=== PATIENT | female | born 1970 | race Caucasian/White ===

== ENCOUNTER → 2017-12-11 | Outpatient (REF) | payer OTHER | LOC: M LAB REF 17:28 | DX: R30.0 Dysuria (principal) ==

== ENCOUNTER → 2018-01-02 | Outpatient (REF) | payer OTHER | LOC: M LAB REF 17:27 | DX: R30.0 Dysuria (principal) | CPT/HCPCS: 87186 ==

== ENCOUNTER → 2018-01-06 | Outpatient (REF) | payer OTHER ==
[2018-01-06 18:02] LABS: BACTERIA, URINE AUTO 1+ (NEGATIVE); MUCUS, URINE SMALL (NEGATIVE); RBC, URINE AUTO 0 /HPF (0-3); SQUAMOUS EPITHELIAL CELL UR AU 0 /HPF (0-6); WBC, URINE AUTO 33 /HPF (0-3)
== END ==
LOC: M SMT 17:07
DX: R30.0 Dysuria (principal)

== ENCOUNTER → 2018-01-10 | Outpatient (CLI) | payer OTHER ==
[~2018-01-10] MED LIST: ISOVUE-370 76% 100ML VIAL (Q9967) As Ordered
== END ==
LOC: M RAD 08:08
DX: R30.0 Dysuria (principal)
CPT/HCPCS: Q9967

== ENCOUNTER → 2018-01-20 | Outpatient (REF) | payer OTHER | LOC: M SMT 11:56 | DX: N39.0 Urinary tract infection, site not specified (principal) ==

== ENCOUNTER → 2018-02-07 | Outpatient (REF) | payer OTHER ==
[2018-02-07 14:06] LABS: BACTERIA, URINE AUTO 1+ (NEGATIVE); MUCUS, URINE SMALL (NEGATIVE); RBC, URINE AUTO 3 /HPF (0-3); SQUAMOUS EPITHELIAL CELL UR AU 1 /HPF (0-6); WBC, URINE AUTO TNTC /HPF (0-3); YEAST LIKE CELL URINE AUTO SMALL
== END ==
LOC: M SMT 13:17
DX: R30.0 Dysuria (principal)

== ENCOUNTER → 2018-02-19 | Outpatient (REF) | payer OTHER ==
[2018-02-19 13:38] LABS: APPEARANCE, URINE CLEAR (CLEAR); BACTERIA, URINE AUTO 1+ (NEGATIVE); BILIRUBIN, URINE AUTO NEGATIVE (NEGATIVE); BLOOD, URINE BLOOD NEGATIVE (NEGATIVE); COLOR, URINE YELLOW (YELLOW); GLUCOSE, URINE (UA) AUTO NEGATIVE (NEGATIVE); KETONE, URINE AUTO NEGATIVE (NEGATIVE); LEUKOCYTE ESTERASE, URINE AUTO 1+ (NEGATIVE); NITRITE, URINE AUTO NEGATIVE (NEGATIVE); PROTEIN, URINE AUTO NEGATIVE (NEGATIVE); RBC, URINE AUTO 1 /HPF (0-3); SPECIFIC GRAVITY URINE AUTO 1.006 (1.002-1.035); SQUAMOUS EPITHELIAL CELL UR AU 0 /HPF (0-6); UROBILINOGEN, URINE AUTO 0.2 mg/dL (0.0-2.0); WBC, URINE AUTO 19 /HPF (0-3)
== END ==
LOC: M SMT 13:06
DX: N39.0 Urinary tract infection, site not specified (principal)
CPT/HCPCS: 81001

== ENCOUNTER → 2018-03-07 | Outpatient (REF) | payer OTHER ==
[2018-03-07 14:14] LABS: AMORPHOUS SEDIMENT SMALL (NEGATIVE); BACTERIA, URINE AUTO NEGATIVE (NEGATIVE); RBC, URINE AUTO 5 /HPF (0-3); SQUAMOUS EPITHELIAL CELL UR AU 0 /HPF (0-6); WBC, URINE AUTO 181 /HPF (0-3)
== END ==
LOC: M SMT 12:55
PROVIDERS: ATTEND Specialist
DX: R30.0 Dysuria (principal)

== ENCOUNTER → 2018-03-16 | Outpatient (REF) | payer OTHER | LOC: M WUC 09:10 | PROVIDERS: ATTEND Physician Assistant | DX: N39.0 Urinary tract infection, site not specified (principal) ==

== ENCOUNTER → 2018-04-10 | Outpatient (REF) | payer OTHER ==
[2018-04-10 18:52] LABS: BACTERIA, URINE AUTO 1+ (NEGATIVE); CALCIUM OXALATE CRYSTALS MODERATE; MUCUS, URINE SMALL (NEGATIVE); RBC, URINE AUTO 4 /HPF (0-3); SQUAMOUS EPITHELIAL CELL UR AU 5 /HPF (0-6); WBC, URINE AUTO TNTC /HPF (0-3)
== END ==
LOC: M SMT 17:36
PROVIDERS: ATTEND Specialist
DX: K50.914 Crohn's disease, unspecified, with abscess (principal)

== ENCOUNTER → 2018-06-18 | Outpatient (REF) | payer OTHER ==
[2018-06-18 18:02] LABS: BACTERIA, URINE AUTO 1+ (NEGATIVE); MUCUS, URINE SMALL (NEGATIVE); RBC, URINE AUTO 2 /HPF (0-3); SQUAMOUS EPITHELIAL CELL UR AU 0 /HPF (0-6); WBC, URINE AUTO 99 /HPF (0-3)
== END ==
LOC: M SMT 17:01
PROVIDERS: ATTEND Specialist
DX: R30.0 Dysuria (principal)

== ENCOUNTER 2020-08-05 21:16 | Emergency (ER) | payer OTHER ==
[~2020-08-05] VITALS: Ht 160 cm; Wt 77.9 kg
[2020-08-05] MEDS ORDERED: PROG1CAP9 PO (21:31)
[2020-08-05] MEDS ORDERED: CEPH500T PO ×2 (21:31)
[2020-08-05] MEDS ORDERED: PENT500C PO (21:31)
[2020-08-05] MEDS ORDERED: HUMI40IN2 INJ (21:31)
[2020-08-05] MEDS ORDERED: PANT20TA6 PO (21:31)
[2020-08-05] MEDS ORDERED: ONDA-83 PO (21:31)
[2020-08-05] MEDS ORDERED: TELM1TAB35 PO (21:31)
[2020-08-05] MEDS ORDERED: HYDR-3490 PO (21:31)
[2020-08-05] MEDS ORDERED: ACETAMINOPHEN 325 MG TAB PO ONE (22:35)
[2020-08-05 22:46] LABS: BASO % 0.2 % (0.0-1.0); EOS % 0.1 % (0.0-3.0); HEMATOCRIT 37.7 % (36.0-47.0); HEMOGLOBIN 12.9 g/dl (12.0-15.5); LYMPH # 0.2 10^3/uL (1.5-5.0); LYMPH % 1.2 % (24.0-44.0); MEAN CORPUSCULAR HEMOGLOBIN 31.8 pg (27.0-33.0); MEAN CORPUSCULAR HGB CONC 34.2 g/dl (32.0-36.5); MEAN CORPUSCULAR VOLUME 92.9 fl (80.0-96.0); MONO # 0.8 10^3/uL (0.0-0.8); MONO % 4.4 % (2.0-8.0); NEUTROPHILS # 16.1 10^3/uL (1.5-8.5); NEUTROPHILS % 93.3 % (36.0-66.0); PLATELET COUNT, AUTOMATED 342 10^3/uL (150-450); RED BLOOD COUNT 4.06 10^6/uL (4.00-5.40); WHITE BLOOD COUNT 17.2 10^3/uL (4.0-10.0)
[2020-08-05 23:10] LABS: BLOOD UREA NITROGEN 15 MG/DL (7-18); CARBON DIOXIDE LEVEL 28 MEQ/L (21-32); CHLORIDE LEVEL 102 MEQ/L (98-107); CREATININE FOR GFR 0.85 MG/DL (0.55-1.30); GLOMERULAR FILTRATION RATE > 60.0 (>58); GLUCOSE, FASTING 183 MG/DL (70-100); POTASSIUM SERUM 3.5 MEQ/L (3.5-5.1); SODIUM LEVEL 138 MEQ/L (136-145)
[2020-08-05 23:15] LABS: ALBUMIN 3.2 GM/DL (3.2-5.2); ALT/SGPT 38 U/L (12-78); BILIRUBIN,DIRECT 0.2 MG/DL (0.0-0.2); BILIRUBIN,TOTAL 0.5 MG/DL (0.2-1.0); HCG, SERUM QUANTITATIVE < 1.0 MIU/ML; TOTAL PROTEIN 7.6 GM/DL (6.4-8.2)
[2020-08-05] MEDS ORDERED: NS 1,000 ML IV ONE (23:20)
[2020-08-05] MEDS ORDERED: NS 2,340 ML in IV 1 EA IV ONE (23:20)
[2020-08-05] MEDS ORDERED: cefTRIAXone SOD 2 GM in D5W MINI-BAG PLUS 50 ML IV ONE (23:20)
[2020-08-06] MEDS ORDERED: ACETAMINOPHEN 325 MG TAB PO ONE (00:15)
--- NOTE | 2020-08-06 04:28 | REPVR ---
PROCEDURE INFORMATION: Exam: CT Abdomen And Pelvis Without Contrast Exam date and time: 08/06/2020 3:12 AM Age: 49 years old Clinical indication: Abdominal pain; Generalized; Additional info: Hematuria? Stone TECHNIQUE: Imaging protocol: Computed tomography of the abdomen and pelvis without contrast. Radiation optimization: All CT scans at this facility use at least one of these dose optimization techniques: automated exposure control; mA and/or kV adjustment per patient size (includes targeted exams where dose is matched to clinical indication); or iterative reconstruction. COMPARISON: CT ABD PELVIS W/O FOL BY WIT 01/10/2018 8:28 AM FINDINGS: Liver: Hepatomegaly. Gallbladder and bile ducts: Normal. No calcified stones. No ductal dilation. Pancreas: Normal. No ductal dilation. Spleen: Normal. No splenomegaly. Adrenal glands: Normal. No mass. Kidneys and ureters: No hydronephrosis bilaterally. Single punctate nonobstructive in the right kidney and 2 punctate nonobstructive stones in the upper pole of left kidney. No obstructive ureteral stones bilaterally. Stable 8 mm fatty lesion in the posterior midpole of left kidney measuring 8 mm. Consistent with angiomyolipoma. Stomach and bowel: Status post right hemicolectomy. Fluid and stool in the colon. Negative for colonic diverticulitis. No abnormal bowel dilatation. No abnormal bowel wall thickening. Appendix: Appendix is not present. Intraperitoneal space: Unremarkable. No free air. No significant fluid collection. Vasculature: Unremarkable. No abdominal aortic aneurysm. Lymph nodes: Unremarkable. No enlarged lymph nodes. Urinary bladder: Unremarkable as visualized. Reproductive: Uterus is enlarged. Lobulated lesions of the uterus suspicious for fibroids. Bones/joints: Mild degenerative spine. No acute fracture. Mild degenerative changes of the hips bilaterally. Soft tissues: Unrema diastasis of the ventral abdominal wall. IMPRESSION: 1. No hydronephrosis bilaterally. 2. Few punctate nonobstructive stones in the kidneys bilaterally. 3. Hepatomegaly. Mildly increased from prior. 4. Status post right hemicolectomy. 5. Fluid and stool in the colon. Unknown etiology. 6. Uterus is enlarged and lobulated. Suspicious for fibroids. Uterus is mildly enlarged compared the prior. Electronically signed by: Don Henson On 08/06/2020 04:28:13 AM
[2020-08-06] MEDS ORDERED: CEPH500C PO (04:39)
[2020-08-06 04:50] VITALS: BP 123/63
[2020-08-06] MEDS ORDERED: PENT500C PO (23:06)
[2020-08-06] MEDS ORDERED: UREX PO (23:09)
[2020-08-06] MEDS ORDERED: FERR32TA PO (23:09)
[2020-08-06] MEDS ORDERED: CALCTAB54 PO (23:09)
[2020-08-06] MEDS ORDERED: EQL50TAB2 PO (23:09)
[2020-08-06] MEDS ORDERED: THERTAB52 PO (23:09)
[2020-08-06] MEDS ORDERED: CVS1CAP2 PO (23:09)
== END 2020-08-06 04:50 | disposition home or self-care (01) ==
LOC: M ED 21:16
DX: N39.0 Urinary tract infection, site not specified (principal); Z79.899 Other long term (current) drug therapy
CPT/HCPCS: 36415; 74176; 80048; 80076; 81001; 83605; 84702; 85025; 87040; 87077; 87086; 87186; 96361; 96374; 99284; J0696

== ENCOUNTER → 2020-08-05 | Outpatient (REF) | payer OTHER ==
[~2020-08-05] MED LIST changes: +CALCTAB54 PO; +CEPH500C PO; +CEPH500T PO; +CVS1CAP2 PO; +EQL50TAB2 PO; +FERR32TA PO; +HUMI40IN2 INJ; +HYDR-3490 PO; -ISOVUE-370 76% 100ML VIAL (Q9967) As Ordered; +ONDA-83 PO; +PANT20TA6 PO; +PENT500C PO; +PROG1CAP9 PO; +TELM1TAB35 PO; +THERTAB52 PO; +UREX PO
== END ==
LOC: M LAB REF 15:49
PROVIDERS: ATTEND Physician Assistant
DX: R30.0 Dysuria (principal)

== ENCOUNTER 2020-08-06 20:41 | Observation (INO) | payer OTHER ==
[~2020-08-06] VITALS: Ht 160 cm; Wt 81.7 kg
[~2020-08-06 20:41] MED LIST changes: -CALCTAB54 PO; -CVS1CAP2 PO; -EQL50TAB2 PO; -FERR32TA PO; -THERTAB52 PO; -UREX PO
[2020-08-06] MEDS ORDERED: ACETAMINOPHEN 325 MG TAB PO ONE (21:05)
[2020-08-06] MEDS ORDERED: PIPERACILLIN/TAZOBACTAM SOD 4.5 GM in D5W MINI-BAG PLUS 50 ML IV ONE (21:05)
[2020-08-06] MEDS ORDERED: NS 2,400 ML in IV 1 EA IV ONE (21:05)
[2020-08-06 21:44] LABS: HEMATOCRIT 34.4 % (36.0-47.0); HEMOGLOBIN 11.6 g/dl (12.0-15.5); MEAN CORPUSCULAR HEMOGLOBIN 32.1 pg (27.0-33.0); MEAN CORPUSCULAR HGB CONC 33.7 g/dl (32.0-36.5); MEAN CORPUSCULAR VOLUME 95.3 fl (80.0-96.0); PLATELET COUNT, AUTOMATED 269 10^3/uL (150-450); RED BLOOD COUNT 3.61 10^6/uL (4.00-5.40); WHITE BLOOD COUNT 6.3 10^3/uL (4.0-10.0)
[2020-08-06 21:56] LABS: INR 1.23; PROTHROMBIN TIME 15.8 SECONDS (12.5-14.3)
[2020-08-06 21:57] LABS: PARTIAL THROMBOPLASTIN TIME 32.9 SECONDS (24.2-38.5)
[2020-08-06 22:11] LABS: ATYPICAL LYMPH 1 % (0-5); BASOPHILS 1 % (0-1); LYMPHOCYTES 12 % (16-44); MONOCYTES 8 % (0-5); NEUTROPHILS 71 % (28-66)
[2020-08-06 22:12] LABS: PLATELET ESTIMATE NORMAL (NORMAL)
[2020-08-06 22:21] LABS: ALBUMIN 2.9 GM/DL (3.2-5.2); ALT/SGPT 45 U/L (12-78); BILIRUBIN,DIRECT 0.2 MG/DL (0.0-0.2); BILIRUBIN,TOTAL 0.4 MG/DL (0.2-1.0); BLOOD UREA NITROGEN 10 MG/DL (7-18); CALCIUM LEVEL 8.3 MG/DL (8.5-10.1); CARBON DIOXIDE LEVEL 26 MEQ/L (21-32); CHLORIDE LEVEL 106 MEQ/L (98-107); CK-MB VALUE MASS < 1.0 NG/ML (<3.6); CPK CREATINE PHOSPHOKINASE 97 U/L (26-192); CREATININE FOR GFR 0.57 MG/DL (0.55-1.30); GLOMERULAR FILTRATION RATE > 60.0 (>58); GLUCOSE, FASTING 150 MG/DL (70-100); MB/CK RELATIVE INDEX 1.03 (< OR =4); SODIUM LEVEL 140 MEQ/L (136-145); TOTAL PROTEIN 6.5 GM/DL (6.4-8.2); TROPONIN I < 0.02 NG/ML (< 0.10)
[2020-08-06] MEDS ORDERED: POTASSIUM CHL PWD 20 MEQ PACKET PO ONE (22:25)
--- NOTE | 2020-08-06 22:27 | REPVR ---
PROCEDURE INFORMATION: Exam: XR Chest Exam date and time: 08/06/2020 10:00 PM Age: 49 years old Clinical indication: Other: Sepsis/shock TECHNIQUE: Imaging protocol: XR of the chest. Views: 1 view. COMPARISON: No relevant prior studies available. FINDINGS: Lungs: Degree of lung inflation is normal. No evidence of pulmonary edema. No focal consolidation or parenchymal lung mass. Minimal linear or discoid atelectasis at the extreme left lung base Pleural spaces: No pleural effusion or pneumothorax. Heart/Mediastinum: Cardiac silhouette appears normal. No adenopathy or hilar mass. Bones/joints: Osseous structures show no concerning abnormality. IMPRESSION: No acute or focal cardiopulmonary process. Electronically signed by: Jaydon Triplett On 08/06/2020 22:26:55 PM
[2020-08-06 23:02] LABS: APPEARANCE, URINE CLEAR (CLEAR); BACTERIA, URINE AUTO NEGATIVE (NEGATIVE); BILIRUBIN, URINE AUTO NEGATIVE (NEGATIVE); BLOOD, URINE BLOOD NEGATIVE (NEGATIVE); COLOR, URINE YELLOW (YELLOW); GLUCOSE, URINE (UA) AUTO 1+ mg/dL (NEGATIVE); KETONE, URINE AUTO NEGATIVE (NEGATIVE); LEUKOCYTE ESTERASE, URINE AUTO TRACE (NEGATIVE); NITRITE, URINE AUTO NEGATIVE (NEGATIVE); PROTEIN, URINE AUTO NEGATIVE (NEGATIVE); RBC, URINE AUTO 2 /HPF (0-3); SPECIFIC GRAVITY URINE AUTO 1.009 (1.002-1.035); SQUAMOUS EPITHELIAL CELL UR AU 1 /HPF (0-6); UROBILINOGEN, URINE AUTO 0.2 mg/dL (0.0-2.0); WBC, URINE AUTO 12 /HPF (0-3)
[2020-08-06] MEDS ORDERED: PENT500C PO (23:06)
[2020-08-06] MEDS ORDERED: FERR32TA PO (23:09)
[2020-08-06] MEDS ORDERED: THERTAB52 PO (23:09)
[2020-08-06] MEDS ORDERED: UREX PO (23:09)
[2020-08-06] MEDS ORDERED: CALCTAB54 PO (23:09)
[2020-08-06] MEDS ORDERED: CVS1CAP2 PO (23:09)
[2020-08-06] MEDS ORDERED: EQL50TAB2 PO (23:09)
[2020-08-06] MEDS ORDERED: MAALOX 30 ML SUSP *UDC PO PRN (23:15)
[2020-08-06] MEDS ORDERED: ACETAMINOPHEN TAB 650MG DOSE (2X325MG) PO PRN (23:15)
[2020-08-06] MEDS ORDERED: ONDANSETRON 4 MG TAB PO PRN (23:15)
[2020-08-06] MEDS ORDERED: MOM 30ML SUSPENSION UDC PO PRN (23:15)
--- NOTE | 2020-08-06 23:50 | IPNPDOC ---
Text Note Date of Service The patient was seen on 08/06/20. VS,Errolbone, I+O VS, Fishbone, I+O Laboratory Tests 08/06/20 21:25 Vital Signs Date Time Temp Pulse Resp B/P (MAP) Pulse Ox O2 Delivery O2 Flow Rate FiO2 08/06/20 22:26 78 14 96 Room Air 08/06/20 22:00 133/79 (97) 08/06/20 20:42 98.8 ADALGISA DICKERSON MD August 06, 2020 23:50
--- NOTE | 2020-08-06 23:53 | HPEPDOC ---
[facility] Medical History & Physical Date of Admission August 06, 2020 Date of Service: August 06, 2020 Attending Physician: ADALGISA DICKERSON MD History and Physical CHIEF COMPLAINT: [49 y/o female presents after + blood cultures.] HISTORY OF PRESENT ILLNESS: [This is a 49 y/o female with a pmh of crohn's, kidney stones and htn who presents to the ED after growing gram negative rods in a blood culture from 08/05. Patient presented to the ED on 08/05 originally with complaints of abd pain, dysuria, fever and possibly hematuria. Patient met sepsis criteria at that time with leukocytosis, fever, tachycardia and present source of infection. However, patient improved in the ED with 30mg/kg fluid bolus and iv abx and went home. Today, patient states that she does feel overall better and says that she is here because she was called and told to come in. Patient states that she did not feel feverish today and that her dysuria has improved. Patient states that she has some continued abd pain but it is milder in nature. Patient also endorses some continued low back pain that does not radiate. Patient states that she also feels as though she has been having to take more deep breaths the past few days than normal. Patient states that she has had some mild diarrhea but does not feel it is much worse than her baseline d/t her crohn's. Patient denies chest pain, headaches, uri sx, cough, peripheral edema, rash. ] PAST MEDICAL HISTORY: 1. [See HPI PAST SURGICAL HISTORY: 1. [C section x3]. 2. [Bowel resection x2]. 3. [Hernia repair]. SOCIAL HISTORY: Marital status: []. Resides in: [home with , kids] Children: [3] Tobacco use:[Denies] ETOH: [Denies] Illicit drug use: [Denies] FAMILY HISTORY: reviewed - non pertinent ALLERGIES: Please see below. REVIEW OF SYSTEMS: CONSTITUTIONAL: [See HPI]. HEENT: [See HPI]. CARDIOVASCULAR: [See HPI]. RESPIRATORY: [See HPI]. GASTROINTESTINAL: [See HPI]. GENITOURINARY: [See HPI]. SKIN: [Denies rash]. MUSCULOSKELETAL: [Denies acute joint pain]. NEUROLOGICAL: [Denies paresthesias]. ENDOCRINE: [Denies hx of dm]. HEMATOLOGIC/LYMPHATIC: [Denies easy bruising]. HOME MEDICATIONS: Please see below. PHYSICAL EXAMINATION: VITAL SIGNS: Please see below GENERAL APPEARANCE: [This is a wn/wd 49 y/o female who appears her stated age. She is seated in bed in no apparent distress.]. HEENT: [No mass or lesion. EOMI. No scleral icterus. Nares patent. Oral mucosa moist without erythema.]. CARDIOVASCULAR: [Regular rate, rhythm. No murmurs, rubs, gallops]. LUNGS: [Good air flow auscultated. No wheezing, rales, rhonchi]. ABDOMEN: [Soft. Mildly tender throughout]. MUSCULOSKELETAL: [No joint deformity]. EXTREMITIES: [No peripheral edema. No overlying skin changes. Pulses intact.]. NEUROLOGICAL: [Speech clear. A+Ox3. No focal deficits]. PSYCHIATRIC: [Mood and affect appear appropriate]. LABORATORY DATA: See below. IMAGING: [CXR 08/06: FINDINGS: Lungs: Degree of lung inflation is normal. No evidence of pulmonary edema. No focal consolidation or parenchymal lung mass. Minimal linear or discoid atelectasis at the extreme left lung base Pleural spaces: No pleural effusion or pneumothorax. Heart/Mediastinum: Cardiac silhouette appears normal. No adenopathy or hilar mass. Bones/joints: Osseous structures show no concerning abnormality. IMPRESSION: No acute or focal cardiopulmonary process. Abd/pelvis ct from 08/05 visit: FINDINGS: Liver: Hepatomegaly. Gallbladder and bile ducts: Normal. No calcified stones. No ductal dilation. Pancreas: Normal. No ductal dilation. Spleen: Normal. No splenomegaly. Adrenal glands: Normal. No mass. Kidneys and ureters: No hydronephrosis bilaterally. Single punctate nonobstructive in the right kidney and 2 punctate nonobstructive stones in the upper pole of left kidney. No obstructive ureteral stones bilaterally. Stable 8 mm fatty lesion in the posterior midpole of left kidney measuring 8 mm. Consistent with angiomyolipoma. Stomach and bowel: Status post right hemicolectomy. Fluid and stool in the colon. Negative for colonic diverticulitis. No abnormal bowel dilatation. No abnormal bowel wall thickening. Appendix: Appendix is not present. Intraperitoneal space: Unremarkable. No free air. No significant fluid collection. Vasculature: Unremarkable. No abdominal aortic aneurysm. Lymph nodes: Unremarkable. No enlarged lymph nodes. Urinary bladder: Unremarkable as visualized. Reproductive: Uterus is enlarged. Lobulated lesions of the uterus suspicious for fibroids. Bones/joints: Mild degenerative spine. No acute fracture. Mild degenerative changes of the hips bilaterally. Soft tissues: Unrema diastasis of the ventral abdominal wall. IMPRESSION: 1. No hydronephrosis bilaterally. 2. Few punctate nonobstructive stones in the kidneys bilaterally. 3. Hepatomegaly. Mildly increased from prior. 4. Status post right hemicolectomy. 5. Fluid and stool in the colon. Unknown etiology. 6. Uterus is enlarged and lobulated. Suspicious for fibroids. Uterus is mildly enlarged compared the prior.] MICROBIOLOGY: Please see below. ASSESSMENT: [This is a 49 y/o female with a pmh of crohn's, kidney stones and htn who presents to the ED after growing gram negative rods in a blood culture from 08/05. Patient presented to the ED on 08/05 originally with complaints of abd pain, dysuria, fever and possibly hematuria. Lab tests performed today in the ED much improved from yesterday.]. . PLAN: 1. [Gram negative bacteremia - Most likely source of infection is ascending from the bladder - Patient given rocephin on 08/05 in the ed, zosyn today in the ed - Will continue zosyn q6h on the floor - Patient received 30mg/kg fluid bolus in the ed - repeat blood cultures, urine cultures have been collected - Will trend white count, repeat crp and procalcitonin int he morning - tylenol/ibuprofen for fevers should they arise - Admit under obs to med surg tele 2. Hypokalemia - Patient found to have potassium of 3 in the ed. - Given 40meQ oral, will recheck in the morning. will replenish as needed 3. Crohn's - Does not appear to be in acute flair - Will continue mesalamine, humira, probiotic - Continue vitamin supplements 4. HTN - Continue telmisartan, hctz DVT prophylaxis - Teds and SCDs]. Vital Signs Vital Signs Date Time Temp Pulse Resp B/P (MAP) Pulse Ox O2 Delivery O2 Flow Rate FiO2 08/06/20 22:26 78 14 96 Room Air 08/06/20 22:00 133/79 (97) 08/06/20 20:42 98.8 Laboratory Data Labs 24H Laboratory Tests 2 08/06/20 21:18: Urine Color YELLOW, Urine Appearance CLEAR, Urine pH 5.0, Urine Specific [place] 1.009, Urine Protein NEGATIVE, Urine Glucose (Auto)(UA) 1+H, Urine Ketones (Aut o) NEGATIVE, Urine Blood NEGATIVE, Urine Nitrite NEGATIVE, Urine Bilirubin NEGATIVE, Urine Urobilinogen 0.2, Urine Leukocyte Esterase (Auto) TRACEH, Urine WBC (Auto) 12H, Urine RBC (Auto) 2, Urine Hyaline Casts (Auto) 0, Urine Bacteria (Auto) NEGATIVE, Urine Squamous Epithelial Cells 1, Urine Sperm (Auto) 08/06/20 21:25: Neutrophils (%) (Auto) , Nucleated Red Blood Cells % (auto) 0.0, Neutrophils 71H, Band Neutrophils 7, Lymphocytes (Manual) 12L, Monocytes (Manual) 8H, Baso phils (Manual) 1, Atypical Lymphocytes 1, Red Blood Cell Morphology NORMAL, Platelet Estimate NORMAL, Prothrombin Time 15.8H, Prothromb Time International Ratio 1.23, Activated Partial Thromboplast Time 32.9, Anion Gap 8, Glomerular Filtration Rate > 60.0, Lactic Acid Level 2.0, Calcium Level 8.3L, Total Bilirubin 0.4, Direct Bilirubin 0.2, Aspartate Amino Transf (AST/SGOT) 29, Alanine Aminotransferase (ALT/SGPT) 45, Alkaline Phosphatase 76, Total Creatine Kinase 97, Creatine Kinase MB < 1.0, Creatine Kinase MB Relative Index 1.03, Troponin I < 0.02, C-Reactive Protein, Quantitative 15.10H, Total Protein 6.5, Albumin 2.9L, Albumin/Globulin Ratio 0.8L CBC/BMP Laboratory Tests 08/06/20 21:25 Microbiology Microbiology 08/06/20 Respiratory Virus Panel (PCR) (NATHAN), Received Pending 08/06/20 Urine Culture, Received Pending 08/06/20 Blood Culture, Received Pending 08/06/20 Blood Culture, Received Pending Home Medications Scheduled Adalimumab (Humira(Cf) Pen) 40 Mg/0.4 Ml Pen.ij.kit, 40 MG INJ QWEEK SATURDAY Calcium Citrate/Vitamin D3 (Calcium Citrate - Vit D Caplet) 1 Each Tablet, 1 TAB PO DAILY Cephalexin (Cephalexin) 500 Mg Tablet, 500 MG PO BID STARTED 08/05/20 10 DAYS Ferrous Gluconate (Ferrous Gluconate) 324 Mg Tablet, 324 MG PO QHS Hydrochlorothiazide (Hydrochlorothiazide) 25 Mg Tablet, 25 MG PO DAILY Lactobacillus Combo No.10 (Probiotic) 1 Each Capsule, 1 CAP PO DAILY Mesalamine (Pentasa) 500 Mg Capsule.er, 2,000 MG PO QAM Mesalamine (Pentasa) 500 Mg Capsule.er, 1,000 MG PO QHS Multivitamin,Therapeutic (Thera-Tabs) 1 Each Tablet, 1 TAB PO DAILY Pantoprazole Sodium (Pantoprazole Sodium) 20 Mg Tablet.dr, 20 MG PO DAILY Progesterone, Micronized (Progesterone) 200 Mg Capsule, 200 MG PO QHS Telmisartan (Telmisartan) 40 Mg Tablet, 40 MG PO DAILY Vitamin B Complex (Vitamin B Complex) 1 Each Tablet, 1 TAB PO DAILY [Urex] , 1 TAB PO DAILY Scheduled PRN Ondansetron HCl (Ondansetron HCl) 4 Mg Tablet, 4 MG PO TID PRN for NAUSEA OR VOMITING Allergies Coded Allergies: lisinopril (Verified Allergy, Mild, 08/06/20) metronidazole (Verified Adverse Reaction, Mild, RACING HEART, 08/05/20) A-FIB/CHADSVASC A-FIB History Current/History of A-Fib/PAF?: No Attending Note Attending Note time of service 1110 pm Ms Harrison is a 49 yr old w Crohns, frequent UTIs and class 1 obesity (which complicates her care) who presented w [facility] yesterday was diagnosed w a UTI but was asked to return to the ER bc of blood cx that were + for gram neg rods; she will be admitted for sepsis 2/2 UTI (SIRS criteria include fever >101 at home and bandemia), gram neg bacteremia & hypokalemia likely due to diuretic use) Plan: abx / f/u blood cx speciation and sensitivities / instructed the patient to eat bannanas more frequently to avoid reoccurrence of hypokalemia rest per JACLYN Pendleton's H&P ELIJAH PENDLETON August 06, 2020 23:53 ADALGISA DICKERSON MD August 07, 2020 03:00
[2020-08-07 01:25] VITALS: BP 116/68
[2020-08-07] MEDS: FERROUS GLUCONATE 324 MG TAB PO SCH ×2 (01:47→20:01)
[2020-08-07] MEDS: MESALAMINE 250 MG CR CAP PO SCH ×3 (01:48→20:04)
[2020-08-07] MEDS: IBUPROFEN 600MG TAB PO PRN ×2 (01:48→10:46)
[2020-08-07] MEDS ORDERED: POTASSIUM CHLORIDE 10 MEQ SR TABLET PO ONE (03:00)
[2020-08-07] MEDS: PIPERACILLIN/TAZOBACTAM SOD 3.375 GM in D5W MINI-BAG PLUS 50 ML IV SCH ×4 (04:51→22:09)
[2020-08-07 06:00] VITALS: BP 116/68
[2020-08-07 06:26] LABS: HEMOGLOBIN 10.4 g/dl (12.0-15.5); MEAN CORPUSCULAR HGB CONC 32.5 g/dl (32.0-36.5); MEAN CORPUSCULAR VOLUME 95.5 fl (80.0-96.0); PLATELET COUNT, AUTOMATED 229 10^3/uL (150-450); RED BLOOD COUNT 3.35 10^6/uL (4.00-5.40); WHITE BLOOD COUNT 5.1 10^3/uL (4.0-10.0)
[2020-08-07 06:54] LABS: BLOOD UREA NITROGEN 9 MG/DL (7-18); CALCIUM LEVEL 7.7 MG/DL (8.5-10.1); CARBON DIOXIDE LEVEL 24 MEQ/L (21-32); CHLORIDE LEVEL 112 MEQ/L (98-107); CREATININE FOR GFR 0.52 MG/DL (0.55-1.30); GLOMERULAR FILTRATION RATE > 60.0 (>58); GLUCOSE, FASTING 99 MG/DL (70-100); POTASSIUM SERUM 3.7 MEQ/L (3.5-5.1); SODIUM LEVEL 141 MEQ/L (136-145)
--- NOTE | 2020-08-07 07:57 | ECGEPIP ---
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
[2020-08-07] MEDS ORDERED: NEPHRO-VIT TAB (NEPHROCAPS) PO SCH (09:00)
[2020-08-07] MEDS: DOCUSATE SODIUM 100MG CAPSULE PO SCH ×2 (09:00→20:01)
[2020-08-07] MEDS: VITAMIN B COMPLEX/VIT C CAP PO SCH (09:53)
[2020-08-07] MEDS: LACTOBACILLUS ACIDOPHILUS CAP (BACID) PO SCH (09:54)
[2020-08-07] MEDS: TELMISARTAN 20 MG TAB PO SCH (09:54)
[2020-08-07] MEDS: MULTIVITAMINS/MINERALS THERAP 1 TAB PO SCH (09:54)
[2020-08-07] MEDS: PANTOPRAZOLE 20 MG TAB PO SCH (09:54)
[2020-08-07] MEDS: CALCIUM/VITAMIN D 500 MG TAB PO SCH (09:54)
[2020-08-07] MEDS: SIMETHICONE 80MG CHEW TAB PO SCH ×3 (13:39→20:06)
[2020-08-07 14:00] VITALS: BP 111/78
[2020-08-07] MEDS ORDERED: FLUCONAZOLE 50MG TABLET PO ONE (14:00)
[2020-08-07 16:59] LABS: CLOSTRIDIUM DIFFICILE PCR NEGATIVE (NEGATIVE)
[2020-08-07 22:00] VITALS: BP 130/90
[2020-08-07] MEDS ORDERED: RAMELTEON 8 MG TAB (ROZEREM) PO PRN (22:10)
[2020-08-08] MEDS: PIPERACILLIN/TAZOBACTAM SOD 3.375 GM in D5W MINI-BAG PLUS 50 ML IV SCH ×2 (04:34→10:44)
[2020-08-08 06:00] VITALS: BP 130/83
[2020-08-08 06:10] LABS: HEMATOCRIT 31.5 % (36.0-47.0); HEMOGLOBIN 10.4 g/dl (12.0-15.5); MEAN CORPUSCULAR HEMOGLOBIN 31.1 pg (27.0-33.0); MEAN CORPUSCULAR VOLUME 94.3 fl (80.0-96.0); PLATELET COUNT, AUTOMATED 254 10^3/uL (150-450); RED BLOOD COUNT 3.34 10^6/uL (4.00-5.40); WHITE BLOOD COUNT 4.8 10^3/uL (4.0-10.0)
[2020-08-08 06:29] LABS: BLOOD UREA NITROGEN 6 MG/DL (7-18); CALCIUM LEVEL 8.3 MG/DL (8.5-10.1); CARBON DIOXIDE LEVEL 25 MEQ/L (21-32); CHLORIDE LEVEL 110 MEQ/L (98-107); CREATININE FOR GFR 0.52 MG/DL (0.55-1.30); GLOMERULAR FILTRATION RATE > 60.0 (>58); GLUCOSE, FASTING 106 MG/DL (70-100); MAGNESIUM LEVEL 1.9 MG/DL (1.8-2.4); POTASSIUM SERUM 3.8 MEQ/L (3.5-5.1); SODIUM LEVEL 141 MEQ/L (136-145)
[2020-08-08] MEDS: DOCUSATE SODIUM 100MG CAPSULE PO SCH (09:00)
[2020-08-08] MEDS ORDERED: CEPH500C PO (10:16)
[2020-08-08] MEDS: SIMETHICONE 80MG CHEW TAB PO SCH ×2 (10:42→13:43)
[2020-08-08] MEDS: MULTIVITAMINS/MINERALS THERAP 1 TAB PO SCH (10:42)
[2020-08-08] MEDS: LACTOBACILLUS ACIDOPHILUS CAP (BACID) PO SCH (10:42)
[2020-08-08] MEDS: CALCIUM/VITAMIN D 500 MG TAB PO SCH (10:43)
[2020-08-08] MEDS: TELMISARTAN 20 MG TAB PO SCH (10:43)
[2020-08-08] MEDS: VITAMIN B COMPLEX/VIT C CAP PO SCH (10:43)
[2020-08-08] MEDS: MESALAMINE 250 MG CR CAP PO SCH (11:06)
[2020-08-08] MEDS: PANTOPRAZOLE 20 MG TAB PO SCH (11:06)
--- NOTE | 2020-08-08 11:29 | DSES ---
DISCHARGE SUMMARY DATE OF ADMISSION: 08/06/2020 DATE OF DISCHARGE: 08/08/2020 PRINCIPAL DIAGNOSIS: E. coli bacteremia secondary to E. coli urinary tract infection. SECONDARY DIAGNOSES: 1. Immune suppression. 2. History of Crohn's disease. 3. Hypokalemia. 4. History of hypertensive heart disease. HISTORY: Patient was sent for admission after blood cultures grew out gram-negative rods. Details are per history and physical from admission. HOSPITAL COURSE: She was admitted to a Medical bed. She was treated with IV Zosyn. Her urine culture and blood culture (as an outpatient) grew out E. coli. It is pansensitive and EBSL negative. On day of discharge, she is resting comfortably. No fever. No chills. No weakness. PHYSICAL EXAMINATION: VITAL SIGNS: His vital signs are stable. Blood pressure 130/83. She has been afebrile for the course of her hospitalization. LUNGS: Clear. HEART: Regular rhythm. ABDOMEN: Soft, nontender. EXTREMITIES: No peripheral edema. LABORATORY DATA: White count 4, hemoglobin 10.4, platelets 254. Sodium 141, potassium 3.8, BUN 6, creatinine 0.5, glucose 106. C. difficile yesterday was negative. Blood cultures done 08/05 as an outpatient positive for E. coli. Urine culture done 08/05/2020 as an outpatient positive for E. coli, both pansensitive. DISPOSITION: She was discharged home in improved and stable condition. Her activity is as tolerated. She will continue her previous no added salt diet. She will follow up with her primary care provider, Dr. Octavia Roberts, in one week. DISCHARGE MEDICATIONS: Her medications will continue to be: 1. Humira injections weekly. 2. Ferrous gluconate 324 mg at bedtime. 3. Hydrochlorothiazide 25 mg daily. 4. Probiotic. 5. Pentasa 2,000 mg daily and 1,000 mg at bedtime. 6. Multivitamin. 7. Protonix 40 mg daily. 8. Progesterone 200 mg q.h.s. 9. Telmisartan 40 mg daily. 10. B complex vitamin. 11. Urex one tablet daily. 12. She will be discharged on Keflex 500 mg q.i.d. (dose increase) for seven days. She did receive Diflucan during this hospitalization, and she might require more as an outpatient, and she can get this from her primary care provider. PENDING LABORATORY DATA: At the time of this dictation, there are no pending labs.
== END 2020-08-08 14:15 | disposition home or self-care (01) ==
LOC: M ED 20:41 → M ED INP 20:42 → UNDOADMOB 23:12 → M ED INP 23:12 → ENRESERV 08-07 00:32 → M MSPAV 08-07 01:25 → M ED INP 08-07 01:25
PROVIDERS: ADMIT Internal Medicine; ATTEND Family Medicine
DX: R78.81 Bacteremia (principal); N39.0 Urinary tract infection, site not specified; B96.29 Other Escherichia coli [E. coli] as the cause of diseases classified elsewhere; D84.9 Immunodeficiency, unspecified; K50.90 Crohn's disease, unspecified, without complications; I10 Essential (primary) hypertension; E87.6 Hypokalemia; Z79.899 Other long term (current) drug therapy; Z88.8 Allergy status to other drugs, medicaments and biological substances
CPT/HCPCS: 36415; 71045; 80048; 80076; 81001; 82550; 82553; 83605; 83735; 84145; 84484; 85025; 85027; 85610; 85730; 86140; 87040; 87086; 87493; 87798; 93005; 93041; 94760; 96361; 96365; 96366; 99285; J2543

== ENCOUNTER → 2020-08-19 | Outpatient (REF) | payer OTHER ==
[~2020-08-19] MED LIST changes: +CALCTAB54 PO; +CVS1CAP2 PO; +EQL50TAB2 PO; +FERR32TA PO; +THERTAB52 PO; +UREX PO
[2020-08-19 13:25] LABS: APPEARANCE, URINE HAZY (CLEAR); BACTERIA, URINE AUTO NEGATIVE (NEGATIVE); BILIRUBIN, URINE AUTO NEGATIVE (NEGATIVE); BLOOD, URINE BLOOD NEGATIVE (NEGATIVE); COLOR, URINE YELLOW (YELLOW); GLUCOSE, URINE (UA) AUTO NEGATIVE (NEGATIVE); KETONE, URINE AUTO NEGATIVE (NEGATIVE); LEUKOCYTE ESTERASE, URINE AUTO NEGATIVE (NEGATIVE); NITRITE, URINE AUTO NEGATIVE (NEGATIVE); PROTEIN, URINE AUTO NEGATIVE (NEGATIVE); RBC, URINE AUTO 0 /HPF (0-3); SPECIFIC GRAVITY URINE AUTO 1.016 (1.002-1.035); SQUAMOUS EPITHELIAL CELL UR AU 0 /HPF (0-6); UROBILINOGEN, URINE AUTO 0.2 mg/dL (0.0-2.0); WBC, URINE AUTO 0 /HPF (0-3)
== END ==
LOC: M SMT 12:56
PROVIDERS: ATTEND Nurse Practitioner Family
DX: N39.0 Urinary tract infection, site not specified (principal)

== ENCOUNTER → 2020-11-05 | Outpatient (REF) | payer OTHER | LOC: M LAB REF 17:31 | PROVIDERS: ATTEND Physician Assistant | DX: N39.0 Urinary tract infection, site not specified (principal) ==

== ENCOUNTER → 2021-01-30 | Outpatient (CLI) | payer BC | LOC: M WHC 15:08 | PROVIDERS: ATTEND Obstetrics & Gynecology | DX: Z53.20 Procedure and treatment not carried out because of patient's decision for unspecified reasons (principal) ==

== ENCOUNTER → 2021-01-30 | Outpatient (CLI) | payer BC ==
--- NOTE | 2021-01-30 17:12 | DEXAMM ---
INDICATION: DISORDER OF BONE. COMPARISON: 01/06/2010. TECHNIQUE: Bone density was measured using dual-energy x-ray absorptiometry (DEXA). FINDINGS: AP SPINE L1-L4 BMD 1.720 g/cm2 Young Adult T-Score 4.2 Age Matched Z-Score 4.5. LT FEMUR, TOTAL BMD 1.468 g/cm2 Young Adult T-Score 3.6 Age Matched Z-Score 4.1. LT NECK BMD 1.347 g/cm2 Young Adult T-Score 2.2 Age Matched Z-Score 2.9. RT FEMUR, TOTAL BMD 1.531 g/cm2 Young Adult T-Score 4.2 Age Matched Z-Score 4.6. RT NECK BMD 1.556 g/cm2 Young Adult T-Score 3.7 Age Matched Z-Score 4.4. IMPRESSION: There is normal bone density of the spine. There is normal bone density of the left hip. There is normal bone density of the right hip. The density of the spine has increased 4.6% since the initial exam on 01/06/2010. The density of the left hip has decreased 1.0% since initial exam on 01/06/2010. The density of the right hip has increased 0.9% since the initial exam on 01/06/2010. FOLLOW-UP: Recommendation for the next bone density exam: 5 years. <Electronically signed by Mann Calderon > 01/30/21 [id number]
== END ==
LOC: M WHC 15:14
PROVIDERS: ATTEND Family Medicine
DX: M89.9 Disorder of bone, unspecified (principal)

== ENCOUNTER → 2021-02-02 | Outpatient (CLI) | payer BC ==
[2021-02-02 14:17] LABS: HEMATOCRIT 40.9 % (36.0-47.0); HEMOGLOBIN 13.6 g/dl (12.0-15.5); MEAN CORPUSCULAR HEMOGLOBIN 31.8 pg (27.0-33.0); MEAN CORPUSCULAR HGB CONC 33.3 g/dl (32.0-36.5); MEAN CORPUSCULAR VOLUME 95.6 fl (80.0-96.0); PLATELET COUNT, AUTOMATED 378 10^3/uL (150-450); RED BLOOD COUNT 4.28 10^6/uL (4.00-5.40); WHITE BLOOD COUNT 10.7 10^3/uL (4.0-10.0)
[2021-02-02 14:47] LABS: ERYTHROCYTE SEDIMENTATION RATE 27 mm/hr (0-20)
[2021-02-02 15:45] LABS: ALBUMIN 3.7 GM/DL (3.2-5.2); ALT/SGPT 27 U/L (12-78); BILIRUBIN,DIRECT < 0.1 MG/DL (0.0-0.2); BILIRUBIN,TOTAL 0.5 MG/DL (0.2-1.0); IRON (FE) 83 UG/DL (50-170); TOTAL PROTEIN 7.9 GM/DL (6.4-8.2)
[2021-02-02 15:46] LABS: C REACTIVE PROTEIN QUANTITATIV < 0.30 MG/DL (0.00-0.30); FERRITIN 28 NG/ML (8-252); PERCENT SATURATION 20.8 % (13.2-45.0); TOTAL IRON BINDING CAPACITY 400 UG/DL (250-450)
[2021-02-02 15:50] LABS: TOTAL 25(OH) VITAMIN D 47.9 NG/ML (30.0-100.0); VITAMIN B12 LEVEL 1931 PG/ML (247-911)
== END ==
LOC: M PLALAB 09:39
PROVIDERS: ATTEND Physician Assistant Surgical
DX: K50.10 Crohn's disease of large intestine without complications (principal)

== ENCOUNTER → 2021-02-02 | Outpatient (CLI) | payer BC ==
[2021-02-02 15:47] LABS: ALBUMIN 3.7 GM/DL (3.2-5.2); ALT/SGPT 27 U/L (12-78); BILIRUBIN,TOTAL 0.4 MG/DL (0.2-1.0); BLOOD UREA NITROGEN 10 MG/DL (7-18); CALCIUM LEVEL 9.6 MG/DL (8.5-10.1); CARBON DIOXIDE LEVEL 27 MEQ/L (21-32); CHLORIDE LEVEL 103 MEQ/L (98-107); CHOLESTEROL LEVEL 203 MG/DL (<200); CHOLESTEROL RISK RATIO 4.833 (<5); CREATININE FOR GFR 0.57 MG/DL (0.55-1.30); GLOMERULAR FILTRATION RATE > 60.0 (>58); GLUCOSE, FASTING 89 MG/DL (70-100); HDL CHOLESTEROL 42 MG/DL (>40); LDL CHOLESTEROL 113 MG/DL (<100); NON-HDL-C 161 MG/DL; POTASSIUM SERUM 3.5 MEQ/L (3.5-5.1); SODIUM LEVEL 137 MEQ/L (136-145); TOTAL PROTEIN 7.7 GM/DL (6.4-8.2); TRIGLYCERIDES LEVEL 242 MG/DL (<150)
== END ==
LOC: M PLALAB 09:36
PROVIDERS: ATTEND Family Medicine
DX: I10 Essential (primary) hypertension (principal)

== ENCOUNTER → 2021-02-15 | Outpatient (CLI) | payer BC ==
--- NOTE | 2021-02-15 11:03 | REP ---
INDICATION: FIBROIDS. COMPARISON: 12/09/2019 also transvaginal only TECHNIQUE: Transvaginal technique only FINDINGS: The uterus measures 12.5 x 7.79.1 cm essentially unchanged from the prior exam. There are numerous hypoechoic nodule seen throughout the uterine parenchyma midline anterior 2.2 x 2.7 x 2.3 cm, midline posterior 2.9 x 3.7 x 2.6 cm, and lateral posterior 1.4 x 1.7 x 1.7 cm. These are the largest well-demarcated solid hypoechoic nodules. The endometrial echo complex is slightly heterogenous but with a maximal thickness of 7 mm. Neither ovary was visualized. IMPRESSION: Uterine measurements on myomatous changes as described above. <Electronically signed by Victor Hugo House > 02/15/21 [id number]
== END ==
LOC: M RAD 10:05
PROVIDERS: ATTEND Obstetrics & Gynecology
DX: N92.0 Excessive and frequent menstruation with regular cycle (principal)

== ENCOUNTER → 2021-02-20 | Outpatient (CLI) | payer BC ==
[2021-02-27 12:09] LABS: ADALIMUMAB LEVEL 8.7 ug/mL (.); ANTI-ADALIMUMAB ABY <25 ng/mL (.)
== END ==
LOC: M PLALAB 15:24
PROVIDERS: ATTEND Physician Assistant Surgical
DX: K50.10 Crohn's disease of large intestine without complications (principal)

== ENCOUNTER → 2021-02-24 | Outpatient (REF) | payer OTHER, BC ==
[2021-02-24 17:47] LABS: APPEARANCE, URINE CLOUDY (CLEAR); BACTERIA, URINE AUTO NEGATIVE (NEGATIVE); BILIRUBIN, URINE AUTO NEGATIVE (NEGATIVE); BLOOD, URINE BLOOD 2+ (NEGATIVE); COLOR, URINE YELLOW (YELLOW); GLUCOSE, URINE (UA) AUTO NEGATIVE (NEGATIVE); KETONE, URINE AUTO TRACE mg/dL (NEGATIVE); LEUKOCYTE ESTERASE, URINE AUTO 3+ (NEGATIVE); NITRITE, URINE AUTO NEGATIVE (NEGATIVE); PROTEIN, URINE AUTO 1+ mg/dL (NEGATIVE); RBC, URINE AUTO TNTC /HPF (0-3); SPECIFIC GRAVITY URINE AUTO 1.023 (1.002-1.035); SQUAMOUS EPITHELIAL CELL UR AU 1 /HPF (0-6); TRANSITIONAL EPITHELIAL AUTO 2 /HPF; UROBILINOGEN, URINE AUTO 0.2 mg/dL (0.0-2.0); WBC, URINE AUTO TNTC /HPF (0-3)
== END ==
LOC: M SMT 17:00
PROVIDERS: ATTEND Nurse Practitioner Women's Health
DX: R30.0 Dysuria (principal)

== ENCOUNTER → 2021-03-20 | Outpatient (CLI) | payer BC ==
[2021-03-20 12:38] LABS: HEPATITIS B SURFACE ANTIBODY NEGATIVE (POSITIVE); HEPATITIS B SURFACE ANTIGEN NEGATIVE (NEGATIVE)
== END ==
LOC: M WUC 09:34
PROVIDERS: ATTEND Physician Assistant Surgical
DX: K50.10 Crohn's disease of large intestine without complications (principal)

== ENCOUNTER → 2021-06-15 | Outpatient (CLI) | payer BC ==
[2021-06-15 13:16] LABS: BASO % 0.2 % (0.0-1.0); EOS % 0.2 % (0.0-3.0); HEMATOCRIT 37.7 % (36.0-47.0); HEMOGLOBIN 12.7 g/dl (12.0-15.5); LYMPH # 1.2 10^3/uL (1.5-5.0); LYMPH % 14.5 % (24.0-44.0); MEAN CORPUSCULAR HEMOGLOBIN 31.1 pg (27.0-33.0); MEAN CORPUSCULAR HGB CONC 33.7 g/dl (32.0-36.5); MEAN CORPUSCULAR VOLUME 92.2 fl (80.0-96.0); MONO # 0.8 10^3/uL (0.0-0.8); MONO % 9.7 % (2.0-8.0); NEUTROPHILS # 6.2 10^3/uL (1.5-8.5); NEUTROPHILS % 74.9 % (36.0-66.0); PLATELET COUNT, AUTOMATED 368 10^3/uL (150-450); RED BLOOD COUNT 4.09 10^6/uL (4.00-5.40); WHITE BLOOD COUNT 8.2 10^3/uL (4.0-10.0)
[2021-06-15 14:21] LABS: ALBUMIN 3.7 GM/DL (3.2-5.2); ALT/SGPT 35 U/L (12-78); BLOOD UREA NITROGEN 8 MG/DL (7-18); CALCIUM LEVEL 9.1 MG/DL (8.5-10.1); CARBON DIOXIDE LEVEL 31 MEQ/L (21-32); CHLORIDE LEVEL 102 MEQ/L (98-107); GLOMERULAR FILTRATION RATE > 60.0 (>58); GLUCOSE, FASTING 88 MG/DL (70-100); POTASSIUM SERUM 4.4 MEQ/L (3.5-5.1); SODIUM LEVEL 137 MEQ/L (136-145); TOTAL PROTEIN 7.2 GM/DL (6.4-8.2)
== END ==
LOC: M PLALAB 09:53
PROVIDERS: ATTEND Nurse Practitioner Family
DX: R21 Rash and other nonspecific skin eruption (principal)

== ENCOUNTER → 2022-02-14 | Outpatient (REF) | payer BC | LOC: M LAB REF 17:02 | PROVIDERS: ATTEND Family Medicine | DX: Z12.4 Encounter for screening for malignant neoplasm of cervix (principal) | CPT/HCPCS: 87624; G0123 ==

== ENCOUNTER → 2022-03-08 | Outpatient (CLI) | payer BC ==
[2022-03-08 11:37] LABS: BASO % 0.3 % (0.0-1.0); EOS # 0.1 10^3/uL (0.0-0.5); EOS % 1.1 % (0.0-3.0); HEMATOCRIT 41.4 % (36.0-47.0); HEMOGLOBIN 13.8 g/dl (12.0-15.5); LYMPH # 2.5 10^3/uL (1.5-5.0); LYMPH % 23.2 % (24.0-44.0); MEAN CORPUSCULAR HEMOGLOBIN 31.1 pg (27.0-33.0); MEAN CORPUSCULAR HGB CONC 33.3 g/dl (32.0-36.5); MEAN CORPUSCULAR VOLUME 93.2 fl (80.0-96.0); MONO % 9.1 % (2.0-8.0); NEUTROPHILS # 7.2 10^3/uL (1.5-8.5); NEUTROPHILS % 65.9 % (36.0-66.0); PLATELET COUNT, AUTOMATED 388 10^3/uL (150-450); RED BLOOD COUNT 4.44 10^6/uL (4.00-5.40); WHITE BLOOD COUNT 10.9 10^3/uL (4.0-10.0)
[2022-03-08 12:56] LABS: THYROID STIMULATING HORMONE 1.546 uIU/ML (0.55-4.78)
[2022-03-08 12:57] LABS: ALBUMIN 3.4 G/DL (3.2-5.2); ALKALINE PHOSPHATASE 60 U/L (46-116); ALT/SGPT 35 U/L (7.0-40); AST/SGOT 22 U/L (<34); BILIRUBIN,TOTAL 0.4 MG/DL (0.3-1.2); BLOOD UREA NITROGEN 16 MG/DL (9-23); CALCIUM LEVEL 9.6 MG/DL (8.5-10.1); CARBON DIOXIDE LEVEL 24 MMOL/L (20-31); CHLORIDE LEVEL 99 MMOL/L (98-107); CHOLESTEROL LEVEL 196 MG/DL (<200); CHOLESTEROL RISK RATIO 4.64 (<5); CREATININE FOR GFR 0.51 MG/DL (0.55-1.30); GLOMERULAR FILTRATION RATE > 60.0 (>58); GLUCOSE, FASTING 110 MG/DL (60-100); HDL CHOLESTEROL 42.2 MG/DL (>40); LDL CHOLESTEROL 101.6 MG/DL (<100); NON-HDL-C 154 MG/DL; POTASSIUM SERUM 4.4 MMOL/L (3.5-5.1); SODIUM LEVEL 136 MMOL/L (136-145); TOTAL PROTEIN 7.3 G/DL (5.7-8.2); TRIGLYCERIDES LEVEL 261 MG/DL (<150)
== END ==
LOC: M PLALAB 07:28
PROVIDERS: ATTEND Family Medicine
DX: Z00.00 Encounter for general adult medical examination without abnormal findings (principal); I10 Essential (primary) hypertension

== ENCOUNTER → 2022-03-08 | Outpatient (CLI) | payer BC ==
[2022-03-08 11:36] LABS: HEMATOCRIT 41.4 % (36.0-47.0); HEMOGLOBIN 13.7 g/dl (12.0-15.5); MEAN CORPUSCULAR HEMOGLOBIN 30.9 pg (27.0-33.0); MEAN CORPUSCULAR HGB CONC 33.1 g/dl (32.0-36.5); MEAN CORPUSCULAR VOLUME 93.5 fl (80.0-96.0); PLATELET COUNT, AUTOMATED 382 10^3/uL (150-450); RED BLOOD COUNT 4.43 10^6/uL (4.00-5.40); WHITE BLOOD COUNT 11.2 10^3/uL (4.0-10.0)
[2022-03-08 11:40] LABS: MAGNESIUM LEVEL 1.7 MG/DL (1.8-2.4)
[2022-03-08 11:42] LABS: ALBUMIN 3.4 G/DL (3.2-5.2); ALKALINE PHOSPHATASE 58 U/L (46-116); ALT/SGPT 31 U/L (7.0-40); AST/SGOT 24 U/L (<34); BILIRUBIN,TOTAL 0.4 MG/DL (0.3-1.2); BLOOD UREA NITROGEN 15 MG/DL (9-23); CALCIUM LEVEL 9.5 MG/DL (8.5-10.1); CARBON DIOXIDE LEVEL 30 MMOL/L (20-31); CHLORIDE LEVEL 99 MMOL/L (98-107); CHOLESTEROL LEVEL 194 MG/DL (<200); CHOLESTEROL RISK RATIO 4.64 (<5); CREATININE FOR GFR 0.54 MG/DL (0.55-1.30); GLOMERULAR FILTRATION RATE > 60.0 (>58); GLUCOSE, FASTING 109 MG/DL (60-100); HDL CHOLESTEROL 41.8 MG/DL (>40); LDL CHOLESTEROL 100.8 MG/DL (<100); NON-HDL-C 152 MG/DL; POTASSIUM SERUM 4.5 MMOL/L (3.5-5.1); SODIUM LEVEL 134 MMOL/L (136-145); TOTAL PROTEIN 7.3 G/DL (5.7-8.2); TRIGLYCERIDES LEVEL 257 MG/DL (<150)
[2022-03-08 11:44] LABS: FREE T4 1.06 NG/DL (0.89-1.76)
[2022-03-08 13:33] LABS: THYROID STIMULATING HORMONE 1.536 uIU/ML (0.55-4.78)
== END ==
LOC: M PLALAB 07:26
PROVIDERS: ATTEND Physician Assistant
DX: R00.2 Palpitations (principal); E78.1 Pure hyperglyceridemia

== ENCOUNTER → 2022-03-08 | Outpatient (CLI) | payer BC ==
[2022-03-08 11:37] LABS: HEMATOCRIT 41.4 % (36.0-47.0); HEMOGLOBIN 13.9 g/dl (12.0-15.5); MEAN CORPUSCULAR HEMOGLOBIN 31.2 pg (27.0-33.0); MEAN CORPUSCULAR HGB CONC 33.6 g/dl (32.0-36.5); MEAN CORPUSCULAR VOLUME 92.8 fl (80.0-96.0); PLATELET COUNT, AUTOMATED 393 10^3/uL (150-450); RED BLOOD COUNT 4.46 10^6/uL (4.00-5.40); WHITE BLOOD COUNT 10.8 10^3/uL (4.0-10.0)
[2022-03-08 11:41] LABS: C REACTIVE PROTEIN QUANTITATIV < 0.40 MG/DL (<1.0)
[2022-03-08 11:42] LABS: ALBUMIN 3.5 G/DL (3.2-5.2); ALKALINE PHOSPHATASE 59 U/L (46-116); ALT/SGPT 33 U/L (7.0-40); AST/SGOT 23 U/L (<34); BILIRUBIN,DIRECT 0.1 MG/DL (<0.4); BILIRUBIN,TOTAL 0.4 MG/DL (0.3-1.2); BLOOD UREA NITROGEN 15 MG/DL (9-23); CALCIUM LEVEL 9.3 MG/DL (8.5-10.1); CARBON DIOXIDE LEVEL 29 MMOL/L (20-31); CHLORIDE LEVEL 98 MMOL/L (98-107); CREATININE FOR GFR 0.53 MG/DL (0.55-1.30); GLOMERULAR FILTRATION RATE > 60.0 (>58); GLUCOSE, FASTING 110 MG/DL (60-100); POTASSIUM SERUM 4.1 MMOL/L (3.5-5.1); SODIUM LEVEL 134 MMOL/L (136-145); TOTAL IRON BINDING CAPACITY 339 UG/DL (250-425); TOTAL PROTEIN 7.4 G/DL (5.7-8.2)
[2022-03-08 11:43] LABS: FERRITIN 25.8 NG/ML (7.3-270.7); IRON (FE) 100 UG/DL (50-170); PERCENT SATURATION 29.5 % (13.2-45.0)
[2022-03-08 11:44] LABS: VITAMIN B12 LEVEL 812 PG/ML (211-911)
[2022-03-08 16:11] LABS: TOTAL 25(OH) VITAMIN D 32.4 NG/ML (20.0-100.0)
== END ==
LOC: M PLALAB 07:23
PROVIDERS: ATTEND Physician Assistant Surgical
DX: K50.10 Crohn's disease of large intestine without complications (principal); K21.9 Gastro-esophageal reflux disease without esophagitis

== ENCOUNTER → 2022-07-03 | Outpatient (CLI) | payer BC | LOC: M WHC 10:47 | PROVIDERS: ATTEND Obstetrics & Gynecology | DX: N92.0 Excessive and frequent menstruation with regular cycle (principal); N85.2 Hypertrophy of uterus; Z80.41 Family history of malignant neoplasm of ovary ==

== ENCOUNTER → 2022-10-22 | Outpatient (CLI) | payer BC ==
[2022-10-22 14:09] LABS: HEMOGLOBIN A1c 5.1 % (4.0-6.0)
[2022-10-22 14:14] LABS: BLOOD UREA NITROGEN 9 MG/DL (9-23); CALCIUM LEVEL 9.3 MG/DL (8.5-10.1); CARBON DIOXIDE LEVEL 28 MMOL/L (20-31); CHLORIDE LEVEL 101 MMOL/L (98-107); CREATININE FOR GFR 0.48 MG/DL (0.55-1.30); GLOMERULAR FILTRATION RATE > 60.0 (>51); GLUCOSE, FASTING 88 MG/DL (60-100); POTASSIUM SERUM 4.8 MMOL/L (3.5-5.1); SODIUM LEVEL 140 MMOL/L (136-145)
== END ==
LOC: M PLALAB 10:10
PROVIDERS: ATTEND Family Medicine
DX: I10 Essential (primary) hypertension (principal); R73.01 Impaired fasting glucose

== ENCOUNTER → 2022-12-03 | Outpatient (REF) | payer BC | LOC: EDBD → MERGE 18:26 → M SFHCDERM 18:26 | PROVIDERS: ATTEND Nurse Practitioner Family | DX: I78.1 Nevus, non-neoplastic (principal) ==

== ENCOUNTER → 2023-03-11 | Outpatient (CLI) | payer BC ==
[2023-03-11 10:56] LABS: BASO % 0.3 % (0.0-1.0); EOS # 0.2 10^3/uL (0.0-0.5); EOS % 1.9 % (0.0-3.0); HEMATOCRIT 39.1 % (36.0-47.0); HEMOGLOBIN 13.5 g/dl (12.0-15.5); LYMPH # 3.2 10^3/uL (1.5-5.0); LYMPH % 30.7 % (24.0-44.0); MEAN CORPUSCULAR HEMOGLOBIN 32.3 pg (27.0-33.0); MEAN CORPUSCULAR HGB CONC 34.5 g/dl (32.0-36.5); MEAN CORPUSCULAR VOLUME 93.5 fl (80.0-96.0); MONO # 0.9 10^3/uL (0.0-0.8); MONO % 8.5 % (2.0-8.0); NEUTROPHILS # 6.1 10^3/uL (1.5-8.5); NEUTROPHILS % 57.9 % (36.0-66.0); PLATELET COUNT, AUTOMATED 337 10^3/uL (150-450); RED BLOOD COUNT 4.18 10^6/uL (4.00-5.40); WHITE BLOOD COUNT 10.5 10^3/uL (4.0-10.0)
[2023-03-11 11:28] LABS: ALBUMIN 3.6 G/DL (3.2-5.2); ALKALINE PHOSPHATASE 55 U/L (46-116); ALT/SGPT 42 U/L (7.0-40); AST/SGOT 15 U/L (<34); BILIRUBIN,TOTAL 0.5 MG/DL (0.3-1.2); BLOOD UREA NITROGEN 13 MG/DL (9-23); CALCIUM LEVEL 9.1 MG/DL (8.5-10.1); CARBON DIOXIDE LEVEL 28 MMOL/L (20-31); CHLORIDE LEVEL 101 MMOL/L (98-107); CHOLESTEROL LEVEL 183 MG/DL (<200); CHOLESTEROL RISK RATIO 4.85 (<5); GLOMERULAR FILTRATION RATE > 60.0 (>51); GLUCOSE, FASTING 105 MG/DL (60-100); HDL CHOLESTEROL 37.7 MG/DL (>40); LDL CHOLESTEROL 99.3 MG/DL (<100); NON-HDL-C 145.3 MG/DL; POTASSIUM SERUM 4.3 MMOL/L (3.5-5.1); SODIUM LEVEL 136 MMOL/L (136-145); TOTAL PROTEIN 6.8 G/DL (5.7-8.2); TRIGLYCERIDES LEVEL 230 MG/DL (<150)
[2023-03-11 11:30] LABS: THYROID STIMULATING HORMONE 1.217 uIU/ML (0.55-4.78)
== END ==
LOC: M PLALAB 07:36
PROVIDERS: ATTEND Family Medicine
DX: I10 Essential (primary) hypertension (principal)

== ENCOUNTER → 2023-03-11 | Outpatient (CLI) | payer BC ==
[2023-03-11 10:55] LABS: HEMATOCRIT 39.3 % (36.0-47.0); HEMOGLOBIN 13.4 g/dl (12.0-15.5); MEAN CORPUSCULAR HEMOGLOBIN 31.7 pg (27.0-33.0); MEAN CORPUSCULAR HGB CONC 34.1 g/dl (32.0-36.5); MEAN CORPUSCULAR VOLUME 92.9 fl (80.0-96.0); PLATELET COUNT, AUTOMATED 340 10^3/uL (150-450); RED BLOOD COUNT 4.23 10^6/uL (4.00-5.40); WHITE BLOOD COUNT 9.7 10^3/uL (4.0-10.0)
[2023-03-11 11:29] LABS: C REACTIVE PROTEIN QUANTITATIV < 0.40 MG/DL (<1.0); IRON (FE) 108 UG/DL (50-170)
[2023-03-11 11:30] LABS: PERCENT SATURATION 33.5 % (13.2-45.0); TOTAL 25(OH) VITAMIN D 36.7 NG/ML (20.0-100.0); TOTAL IRON BINDING CAPACITY 322 UG/DL (250-425); VITAMIN B12 LEVEL 705 PG/ML (211-911)
[2023-03-11 11:31] LABS: ALBUMIN 3.6 G/DL (3.2-5.2); ALKALINE PHOSPHATASE 54 U/L (46-116); ALT/SGPT 44 U/L (7.0-40); AST/SGOT 17 U/L (<34); BILIRUBIN,DIRECT 0.1 MG/DL (<0.4); BILIRUBIN,TOTAL 0.5 MG/DL (0.3-1.2); BLOOD UREA NITROGEN 14 MG/DL (9-23); CALCIUM LEVEL 9.5 MG/DL (8.5-10.1); CARBON DIOXIDE LEVEL 27 MMOL/L (20-31); CHLORIDE LEVEL 103 MMOL/L (98-107); CREATININE FOR GFR 0.49 MG/DL (0.55-1.30); FERRITIN 52.5 NG/ML (7.3-270.7); GLOMERULAR FILTRATION RATE > 60.0 (>51); GLUCOSE, FASTING 107 MG/DL (60-100); POTASSIUM SERUM 4.4 MMOL/L (3.5-5.1); SODIUM LEVEL 139 MMOL/L (136-145); TOTAL PROTEIN 6.9 G/DL (5.7-8.2)
== END ==
LOC: M PLALAB 07:27
PROVIDERS: ATTEND Physician Assistant Surgical
DX: K50.10 Crohn's disease of large intestine without complications (principal)

== ENCOUNTER → 2023-05-29 | Outpatient (REF) | payer BC | LOC: M SFHCWAGY 10:21 | PROVIDERS: ATTEND Nurse Practitioner Family | DX: Z12.4 Encounter for screening for malignant neoplasm of cervix (principal) | CPT/HCPCS: 87624; G0123 ==

== ENCOUNTER → 2023-06-06 | Outpatient (CLI) | payer BC ==
[2023-06-06 17:21] LABS: BLOOD UREA NITROGEN 11 MG/DL (9-23); CREATININE FOR GFR 0.53 MG/DL (0.55-1.30); GLOMERULAR FILTRATION RATE > 60.0 (>51)
== END ==
LOC: M PLALAB 15:34
PROVIDERS: ATTEND Orthopaedic Surgery
DX: M25.551 Pain in right hip (principal); R10.2 Pelvic and perineal pain

== ENCOUNTER → 2023-06-18 | Outpatient (REF) | payer BC ==
[2023-06-18 14:33] LABS: AMORPHOUS SEDIMENT SMALL (NEGATIVE); APPEARANCE, URINE HAZY (CLEAR); BACTERIA, URINE AUTO 1+ (NEGATIVE); BILIRUBIN, URINE AUTO NEGATIVE (NEGATIVE); BLOOD, URINE BLOOD NEGATIVE (NEGATIVE); COLOR, URINE STRAW (YELLOW); GLUCOSE, URINE (UA) AUTO NEGATIVE (NEGATIVE); KETONE, URINE AUTO NEGATIVE (NEGATIVE); LEUKOCYTE ESTERASE, URINE AUTO 2+ (NEGATIVE); NITRITE, URINE AUTO NEGATIVE (NEGATIVE); PROTEIN, URINE AUTO NEGATIVE (NEGATIVE); RBC, URINE AUTO 3 /HPF (0-3); SPECIFIC GRAVITY URINE AUTO 1.009 (1.002-1.035); SQUAMOUS EPITHELIAL CELL UR AU 0 /HPF (0-6); UROBILINOGEN, URINE AUTO 0.2 mg/dL (0.0-2.0); WBC, URINE AUTO 18 /HPF (0-3)
== END ==
LOC: M SMT 13:15 → M LAB REF 13:15
PROVIDERS: ATTEND Nurse Practitioner Family
DX: R30.0 Dysuria (principal)

== ENCOUNTER → 2023-07-15 | Outpatient (CLI) | payer BC | LOC: M WHC 11:30 | PROVIDERS: ATTEND Nurse Practitioner Family | DX: D25.9 Leiomyoma of uterus, unspecified (principal) ==

== ENCOUNTER → 2023-07-18 | Outpatient (CLI) | payer BC | LOC: M RAD 10:19 | PROVIDERS: ATTEND Specialist | DX: N20.0 Calculus of kidney (principal) ==

== ENCOUNTER → 2023-09-12 | Outpatient (CLI) | payer BC | LOC: M WHC 07:28 | PROVIDERS: ATTEND Obstetrics & Gynecology | DX: D25.9 Leiomyoma of uterus, unspecified (principal); N85.2 Hypertrophy of uterus; R10.2 Pelvic and perineal pain; N92.0 Excessive and frequent menstruation with regular cycle ==

== ENCOUNTER → 2023-10-02 | Outpatient (CLI) | payer BC ==
[2023-10-02 15:45] LABS: BASO % 0.4 % (0.0-1.0); EOS # 0.2 10^3/uL (0.0-0.5); EOS % 2.1 % (0.0-3.0); HEMATOCRIT 41.2 % (36.0-47.0); HEMOGLOBIN 13.7 g/dl (12.0-15.5); LYMPH # 2.9 10^3/uL (1.5-5.0); LYMPH % 34.3 % (24.0-44.0); MEAN CORPUSCULAR HEMOGLOBIN 31.6 pg (27.0-33.0); MEAN CORPUSCULAR HGB CONC 33.3 g/dl (32.0-36.5); MEAN CORPUSCULAR VOLUME 95.2 fl (80.0-96.0); MONO # 0.7 10^3/uL (0.0-0.8); NEUTROPHILS # 4.7 10^3/uL (1.5-8.5); NEUTROPHILS % 54.8 % (36.0-66.0); PLATELET COUNT, AUTOMATED 365 10^3/uL (150-450); RED BLOOD COUNT 4.33 10^6/uL (4.00-5.40); WHITE BLOOD COUNT 8.5 10^3/uL (4.0-10.0)
[2023-10-02 15:46] LABS: ALBUMIN 3.8 G/DL (3.2-5.2); ALKALINE PHOSPHATASE 57 U/L (46-116); ALT/SGPT 42 U/L (7.0-40); AST/SGOT 16 U/L (<34); BILIRUBIN,TOTAL 0.6 MG/DL (0.3-1.2); BLOOD UREA NITROGEN 8 MG/DL (9-23); CALCIUM LEVEL 9.9 MG/DL (8.5-10.1); CARBON DIOXIDE LEVEL 31 MMOL/L (20-31); CHLORIDE LEVEL 103 MMOL/L (98-107); CREATININE FOR GFR 0.54 MG/DL (0.55-1.30); GLOMERULAR FILTRATION RATE > 60.0 (>51); GLUCOSE, FASTING 83 MG/DL (60-100); POTASSIUM SERUM 4.6 MMOL/L (3.5-5.1); SODIUM LEVEL 139 MMOL/L (136-145); TOTAL PROTEIN 7.2 G/DL (5.7-8.2)
[2023-10-02 16:08] LABS: HEMOGLOBIN A1c 5.3 % (4.0-6.0)
== END ==
LOC: M PLALAB 11:40
PROVIDERS: ATTEND Family Medicine
DX: Z01.818 Encounter for other preprocedural examination (principal)

== ENCOUNTER → 2024-01-30 | Outpatient (REF) | payer BC ==
[2024-01-30 18:09] LABS: APPEARANCE, URINE HAZY (CLEAR); BACTERIA, URINE AUTO 1+ (NEGATIVE); BILIRUBIN, URINE AUTO NEGATIVE (NEGATIVE); BLOOD, URINE BLOOD NEGATIVE (NEGATIVE); COLOR, URINE YELLOW (YELLOW); GLUCOSE, URINE (UA) AUTO NEGATIVE (NEGATIVE); KETONE, URINE AUTO NEGATIVE (NEGATIVE); LEUKOCYTE ESTERASE, URINE AUTO 2+ (NEGATIVE); MUCUS, URINE SMALL (NEGATIVE); NITRITE, URINE AUTO NEGATIVE (NEGATIVE); PROTEIN, URINE AUTO NEGATIVE (NEGATIVE); RBC, URINE AUTO 2 /HPF (0-3); SPECIFIC GRAVITY URINE AUTO 1.019 (1.002-1.035); SQUAMOUS EPITHELIAL CELL UR AU 8 /HPF (0-6); UROBILINOGEN, URINE AUTO 0.2 mg/dL (0.0-2.0); WBC, URINE AUTO 67 /HPF (0-3)
== END ==
LOC: M SMT 17:19
PROVIDERS: ATTEND Physician Assistant
DX: R30.0 Dysuria (principal)

== ENCOUNTER → 2024-04-29 | Outpatient (CLI) | payer BC ==
[2024-05-01 12:47] LABS: QuantiFERON-TB Gold Plus NEGATIVE (NEGATIVE)
== END ==
LOC: M PLALAB 07:25
PROVIDERS: ATTEND Internal Medicine Gastroenterology
DX: K50.10 Crohn's disease of large intestine without complications (principal); Z79.899 Other long term (current) drug therapy

== ENCOUNTER → 2024-04-29 | Outpatient (CLI) | payer BC ==
[2024-04-29 10:13] LABS: BASO % 0.2 % (0.0-1.0); EOS # 0.1 10^3/uL (0.0-0.5); EOS % 1.4 % (0.0-3.0); HEMATOCRIT 39.6 % (36.0-47.0); HEMOGLOBIN 13.7 g/dl (12.0-15.5); LYMPH # 3.3 10^3/uL (1.5-5.0); LYMPH % 35.6 % (24.0-44.0); MEAN CORPUSCULAR HEMOGLOBIN 32.1 pg (27.0-33.0); MEAN CORPUSCULAR HGB CONC 34.6 g/dl (32.0-36.5); MEAN CORPUSCULAR VOLUME 92.7 fl (80.0-96.0); MONO # 0.5 10^3/uL (0.0-0.8); MONO % 5.9 % (2.0-8.0); NEUTROPHILS # 5.2 10^3/uL (1.5-8.5); NEUTROPHILS % 56.6 % (36.0-66.0); PLATELET COUNT, AUTOMATED 337 10^3/uL (150-450); RED BLOOD COUNT 4.27 10^6/uL (4.00-5.40); WHITE BLOOD COUNT 9.2 10^3/uL (4.0-10.0)
[2024-04-29 10:20] LABS: ALBUMIN 3.7 G/DL (3.2-5.2); ALKALINE PHOSPHATASE 62 U/L (35-104); ALT/SGPT 40 U/L (7.0-40); AST/SGOT 23 U/L (<34); BILIRUBIN,TOTAL 0.5 MG/DL (0.3-1.2); BLOOD UREA NITROGEN 13 MG/DL (9-23); CALCIUM LEVEL 9.6 MG/DL (8.5-10.1); CARBON DIOXIDE LEVEL 31 MMOL/L (20-31); CHLORIDE LEVEL 101 MMOL/L (98-107); GLOMERULAR FILTRATION RATE > 60.0 (>51); GLUCOSE, FASTING 115 MG/DL (60-100); IRON (FE) 103 UG/DL (50-170); PERCENT SATURATION 29.7 % (13.2-45.0); POTASSIUM SERUM 4.7 MMOL/L (3.5-5.1); SODIUM LEVEL 140 MMOL/L (136-145); TOTAL IRON BINDING CAPACITY 347 UG/DL (250-425); TOTAL PROTEIN 7.6 G/DL (5.7-8.2)
[2024-04-29 10:22] LABS: INR 0.92; PARTIAL THROMBOPLASTIN TIME 30.3 SECONDS (24.8-34.2); PROTHROMBIN TIME 12.7 SECONDS (12.5-14.5)
[2024-04-29 10:34] LABS: FERRITIN 100.9 NG/ML (7.3-270.7)
== END ==
LOC: M PLALAB 07:22
PROVIDERS: ATTEND Orthopaedic Surgery Adult Reconstructive Orthopaedic Surgery
DX: Z01.818 Encounter for other preprocedural examination (principal); M16.11 Unilateral primary osteoarthritis, right hip; M25.551 Pain in right hip; K50.10 Crohn's disease of large intestine without complications; Z79.899 Other long term (current) drug therapy

== ENCOUNTER → 2024-07-13 | Outpatient (REF) | payer BC | LOC: M LAB REF 11:57 | PROVIDERS: ATTEND Nurse Practitioner Family | DX: R30.0 Dysuria (principal) ==

== ENCOUNTER → 2024-07-13 | Outpatient (CLI) | payer BC ==
[2024-07-13 14:39] LABS: BASO % 0.3 % (0.0-1.0); EOS % 0.5 % (0.0-3.0); HEMATOCRIT 39.4 % (36.0-47.0); HEMOGLOBIN 12.9 g/dl (12.0-15.5); LYMPH # 1.3 10^3/uL (1.5-5.0); LYMPH % 17.6 % (24.0-44.0); MEAN CORPUSCULAR HEMOGLOBIN 30.9 pg (27.0-33.0); MEAN CORPUSCULAR HGB CONC 32.7 g/dl (32.0-36.5); MEAN CORPUSCULAR VOLUME 94.3 fl (80.0-96.0); MONO # 0.7 10^3/uL (0.0-0.8); MONO % 9.3 % (2.0-8.0); NEUTROPHILS # 5.4 10^3/uL (1.5-8.5); PLATELET COUNT, AUTOMATED 308 10^3/uL (150-450); RED BLOOD COUNT 4.18 10^6/uL (4.00-5.40); WHITE BLOOD COUNT 7.5 10^3/uL (4.0-10.0)
[2024-07-13 15:11] LABS: ALBUMIN 3.9 G/DL (3.2-5.2); ALKALINE PHOSPHATASE 60 U/L (35-104); ALT/SGPT 38 U/L (7.0-40); AST/SGOT 22 U/L (<34); BILIRUBIN,TOTAL 0.4 MG/DL (0.3-1.2); BLOOD UREA NITROGEN 12 MG/DL (9-23); CALCIUM LEVEL 9.1 MG/DL (8.5-10.1); CARBON DIOXIDE LEVEL 30 MMOL/L (20-31); CHLORIDE LEVEL 99 MMOL/L (98-107); CHOLESTEROL LEVEL 165 MG/DL (<200); CREATININE FOR GFR 0.48 MG/DL (0.55-1.30); GLOMERULAR FILTRATION RATE > 90.0 (>51); GLUCOSE, FASTING 94 MG/DL (60-100); HDL CHOLESTEROL 45.8 MG/DL (>40); IRON (FE) 35 UG/DL (50-170); LDL CHOLESTEROL 76.4 MG/DL (<100); NON-HDL-C 119.2 MG/DL; POTASSIUM SERUM 4.2 MMOL/L (3.5-5.1); SODIUM LEVEL 139 MMOL/L (136-145); TOTAL IRON BINDING CAPACITY 349 UG/DL (250-425); TOTAL PROTEIN 7.3 G/DL (5.7-8.2); TRIGLYCERIDES LEVEL 214 MG/DL (<150)
[2024-07-13 15:12] LABS: FREE T4 1.08 NG/DL (0.89-1.76)
[2024-07-13 15:13] LABS: THYROID STIMULATING HORMONE 1.649 uIU/ML (0.55-4.78); VITAMIN B12 LEVEL 603 PG/ML (211-911)
[2024-07-13 15:27] LABS: HEMOGLOBIN A1c 5.5 % (4.0-6.0)
== END ==
LOC: M WUC 10:34
PROVIDERS: ATTEND Student in an Organized Health Care Education/Training Program
DX: M79.2 Neuralgia and neuritis, unspecified (principal); Z13.220 Encounter for screening for lipoid disorders; Z13.1 Encounter for screening for diabetes mellitus; Z76.89 Persons encountering health services in other specified circumstances

== ENCOUNTER → 2024-08-13 | Outpatient (CLI) | payer BC | LOC: M RAD 15:24 | PROVIDERS: ATTEND Specialist | DX: N20.0 Calculus of kidney (principal); N28.89 Other specified disorders of kidney and ureter ==

== ENCOUNTER → 2024-09-24 | Outpatient (CLI) | payer BC ==
[~2024-09-24] MED LIST changes: -EQL50TAB2 PO; +VITA1TAB82 PO
[2024-09-24 15:46] LABS: BASO # 0.0 10^3/uL (0.0-0.2); BASO % 0.2 % (0.0-1.0); EOS # 0.1 10^3/uL (0.0-0.5); EOS % 1.3 % (0.0-3.0); LYMPH # 2.9 10^3/uL (1.5-5.0); LYMPH % 34.8 % (24.0-44.0); MONO # 0.8 10^3/uL (0.0-0.8); MONO % 9.3 % (2.0-8.0); NEUTROPHILS # 4.4 10^3/uL (1.5-8.5); NEUTROPHILS % 54.2 % (36.0-66.0); PLATELET COUNT, AUTOMATED 347 10^3/uL (150-450)
[2024-09-24 15:53] LABS: ERYTHROCYTE SEDIMENTATION RATE 15 mm/hr (0-30)
[2024-09-24 16:12] LABS: RHEUMATOID FACTOR QUANT 5.0 IU/ML (<14)
[2024-09-24 16:14] LABS: ALT/SGPT 42 U/L (7.0-40); AST/SGOT 26 U/L (<34); C REACTIVE PROTEIN QUANTITATIV < 0.50 MG/DL (<1.0); CALCIUM LEVEL 9.5 MG/DL (8.5-10.1); CARBON DIOXIDE LEVEL 31 MMOL/L (20-31); CHLORIDE LEVEL 99 MMOL/L (98-107); CREATININE FOR GFR 0.52 MG/DL (0.55-1.30); GLOMERULAR FILTRATION RATE > 90.0 (>51); POTASSIUM SERUM 4.4 MMOL/L (3.5-5.1); SODIUM LEVEL 141 MMOL/L (136-145)
[2024-10-02 12:43] LABS: HLA-B27 Negative (Negative)
== END ==
LOC: M PLALAB 12:16
PROVIDERS: ATTEND Student in an Organized Health Care Education/Training Program
DX: R20.2 Paresthesia of skin (principal); K50.914 Crohn's disease, unspecified, with abscess

== ENCOUNTER → 2024-11-12 | Outpatient (CLI) | payer BC ==
[2024-11-13 09:12] LABS: T P ELECTROPHORESIS SO 7.6 g/dL (6.1-8.1)
[2024-11-16 16:36] LABS: VITAMIN E(ALPHA TOCOPHEROL) 34.0 mg/L (5.7-19.9); VITAMIN E(GAMMA TOCOPHEROL) < 1.0 mg/L (<=4.3)
[2024-11-16 18:13] LABS: SSA SJOGRENS A <1.0 NEG AI (<1.0 NEG); SSB SJOGRENS B <1.0 NEG AI (<1.0 NEG)
[2024-11-17 08:04] LABS: ALBUMIN SPEP 4.4 g/dL (3.8-4.8); ALPHA-1-GLOBULINS SO 0.2 g/dL (0.2-0.3); ALPHA-2-GLOBULINS SO 0.6 g/dL (0.5-0.9); BETA 2 GLOBULIN 0.4 g/dL (0.2-0.5); BETA-GLOBULIN SO 0.5 g/dL (0.4-0.6); GAMMA GLOBULINS SO 1.4 g/dL (0.8-1.7)
[2024-11-17 14:34] LABS: VITAMIN B1 LEVEL WHOLE BLOOD 174 nmol/L (78-185)
== END ==
LOC: M PLALAB 10:03
PROVIDERS: ATTEND Psychiatry & Neurology Neurology
DX: M35.00 Sjogren syndrome, unspecified (principal); G62.9 Polyneuropathy, unspecified

== ENCOUNTER → 2024-11-19 | Outpatient (CLI) | payer BC | LOC: M SOG 07:26 | PROVIDERS: ATTEND Neuromusculoskeletal Medicine, Sports Medicine | DX: G56.03 Carpal tunnel syndrome, bilateral upper limbs (principal) ==

== ENCOUNTER → 2024-12-21 | Outpatient (REF) | payer BC ==
[2024-12-21 18:27] LABS: APPEARANCE, URINE HAZY (CLEAR); BACTERIA, URINE AUTO NEGATIVE (NEGATIVE); BILIRUBIN, URINE AUTO NEGATIVE (NEGATIVE); BLOOD, URINE BLOOD 3+ (NEGATIVE); GLUCOSE, URINE (UA) AUTO NEGATIVE (NEGATIVE); KETONE, URINE AUTO NEGATIVE (NEGATIVE); LEUKOCYTE ESTERASE, URINE AUTO TRACE (NEGATIVE); MUCUS, URINE SMALL (NEGATIVE); NITRITE, URINE AUTO NEGATIVE (NEGATIVE); PROTEIN, URINE AUTO NEGATIVE (NEGATIVE); RBC, URINE AUTO TNTC /HPF (0-3); SPECIFIC GRAVITY URINE AUTO 1.016 (1.002-1.035); SQUAMOUS EPITHELIAL CELL UR AU 1 /HPF (0-6); UROBILINOGEN, URINE AUTO 0.2 mg/dL (0.0-2.0); WBC, URINE AUTO 15 /HPF (0-3)
== END ==
LOC: M SMT 16:57
PROVIDERS: ATTEND Physician Assistant
DX: R31.0 Gross hematuria (principal)

== ENCOUNTER → 2024-12-23 | Outpatient (REF) | payer BC | LOC: M SMT 17:01 | PROVIDERS: ATTEND Physician Assistant | DX: R39.9 Unspecified symptoms and signs involving the genitourinary system (principal) ==

== ENCOUNTER → 2025-01-08 | Outpatient (CLI) | payer BC | LOC: M RAD 15:35 | PROVIDERS: ATTEND Physician Assistant | DX: F31.0 Bipolar disorder, current episode hypomanic (principal) ==

== ENCOUNTER → 2025-02-09 | Outpatient (REF) | payer BC ==
[2025-02-09 17:04] LABS: APPEARANCE, URINE CLEAR (CLEAR); BACTERIA, URINE AUTO NEGATIVE (NEGATIVE); BILIRUBIN, URINE AUTO NEGATIVE (NEGATIVE); BLOOD, URINE BLOOD NEGATIVE (NEGATIVE); GLUCOSE, URINE (UA) AUTO NEGATIVE (NEGATIVE); KETONE, URINE AUTO NEGATIVE (NEGATIVE); LEUKOCYTE ESTERASE, URINE AUTO NEGATIVE (NEGATIVE); NITRITE, URINE AUTO NEGATIVE (NEGATIVE); PROTEIN, URINE AUTO NEGATIVE (NEGATIVE); RBC, URINE AUTO 0 /HPF (0-3); SPECIFIC GRAVITY URINE AUTO 1.011 (1.002-1.035); SQUAMOUS EPITHELIAL CELL UR AU 0 /HPF (0-6); UROBILINOGEN, URINE AUTO 0.2 mg/dL (0.0-2.0); WBC, URINE AUTO 1 /HPF (0-3)
== END ==
LOC: M SMT 16:47
PROVIDERS: ATTEND Physician Assistant
DX: R31.0 Gross hematuria (principal)